=== PATIENT | male | born 1940 | race Caucasian/White ===

== ENCOUNTER 2019-07-25 12:50 | Outpatient (RCR) | payer SELFPAY | END 2019-08-17 23:59 | disposition home or self-care (01) | LOC: CR 12:50 | PROVIDERS: Family Provider Internal Medicine; Referring Provider Thoracic Surgery (Cardiothoracic Vascular Surgery); Visit Provider Thoracic Surgery (Cardiothoracic Vascular Surgery) | DX: Z76.89 Persons encountering health services in other specified circumstances (principal) ==

== ENCOUNTER 2019-12-25 14:42 | Outpatient (RCR) | payer SELFPAY | END 2020-01-15 23:59 | disposition home or self-care (01) | LOC: CR 14:42 | PROVIDERS: Family Provider Internal Medicine; Referring Provider Thoracic Surgery (Cardiothoracic Vascular Surgery); Visit Provider Thoracic Surgery (Cardiothoracic Vascular Surgery) | DX: Z95.1 Presence of aortocoronary bypass graft (principal) ==

== ENCOUNTER 2020-01-16 | Outpatient (RCR) | payer SELFPAY | END 2020-02-15 23:00 | disposition home or self-care (01) | LOC: CR | PROVIDERS: Family Provider Internal Medicine; Referring Provider Thoracic Surgery (Cardiothoracic Vascular Surgery); Visit Provider Thoracic Surgery (Cardiothoracic Vascular Surgery) | DX: Z95.1 Presence of aortocoronary bypass graft (principal) ==

== ENCOUNTER 2020-02-19 13:56 | Outpatient (RCR) | payer SELFPAY | END 2020-03-17 23:59 | disposition home or self-care (01) | LOC: CR 13:56 | PROVIDERS: Family Provider Internal Medicine; Referring Provider Thoracic Surgery (Cardiothoracic Vascular Surgery); Visit Provider Thoracic Surgery (Cardiothoracic Vascular Surgery) | DX: Z95.1 Presence of aortocoronary bypass graft (principal) ==

== ENCOUNTER 2020-11-25 09:18 | Outpatient (RCR) | payer SELFPAY | END 2020-12-15 23:59 | disposition home or self-care (01) | LOC: CR 09:18 | PROVIDERS: Family Provider Internal Medicine; PCP Internal Medicine; Referring Provider Internal Medicine; Visit Provider Internal Medicine | DX: Z95.1 Presence of aortocoronary bypass graft (principal) ==

== ENCOUNTER 2020-12-18 10:45 | Outpatient (RCR) | payer SELFPAY | END 2021-01-14 23:59 | disposition home or self-care (01) | LOC: CR 10:45 | PROVIDERS: Family Provider Internal Medicine; PCP Internal Medicine; Referring Provider Internal Medicine; Visit Provider Internal Medicine | DX: Z95.1 Presence of aortocoronary bypass graft (principal) ==

== ENCOUNTER 2021-01-15 11:06 | Outpatient (RCR) | payer SELFPAY | END 2021-02-14 23:59 | disposition home or self-care (01) | LOC: CR 11:06 | PROVIDERS: Family Provider Internal Medicine; PCP Internal Medicine; Referring Provider Internal Medicine; Visit Provider Internal Medicine | DX: Z95.1 Presence of aortocoronary bypass graft (principal) ==

== ENCOUNTER 2021-01-26 09:11 | Outpatient (CLI) | payer MEDICARE, OTHER, SELFPAY ==
--- NOTE | 2021-01-26 09:16 | FL_ITS ---
WS: [id number] Juan Francisco Henley 3 13 43 BARIUM SWALLOW TECHNICAL: Double contrast barium swallow with thin and thick liquids FLUOROSCOPY TIME: 2.6 minutes CLINICAL INFORMATION: Dysphagia COMPARISON: None. FINDINGS: Sternotomy. CABG. Swallowing: Prominent Chin tuck performed with swallowing. No penetration or daiana aspiration. Esophagus: Mild esophageal dysmotility with slightly delayed emptying. No strictures. Small esophagea l hiatal hernia. Gastroesophageal reflux: Mild reflux is visualized in the supine position. [place] barium swallow 31446 IMPRESSION: 1. No penetration or daiana aspiration. 2. Moderate esophageal dysmotility with slightly delayed emptying. No strictur es. 3. Small esophageal hiatal hernia with mild reflux visualized in the supine po sition.
== END 2021-01-26 09:12 | disposition home or self-care (01) ==
LOC: RADWPI 09:14
PROVIDERS: Family Provider Internal Medicine; PCP Internal Medicine; Visit Provider Specialist
DX: R13.10 Dysphagia, unspecified (principal); K44.9 Diaphragmatic hernia without obstruction or gangrene; K21.9 Gastro-esophageal reflux disease without esophagitis
CPT/HCPCS: 74220

== ENCOUNTER 2021-02-16 13:28 | Outpatient (RCR) | payer SELFPAY | END 2021-03-17 23:59 | disposition home or self-care (01) | LOC: CR 13:28 | PROVIDERS: Family Provider Internal Medicine; PCP Internal Medicine; Referring Provider Internal Medicine; Visit Provider Internal Medicine | DX: Z95.1 Presence of aortocoronary bypass graft (principal) ==

== ENCOUNTER 2021-02-20 09:38 | Outpatient (CLI) | payer MEDICARE, OTHER, SELFPAY ==
--- NOTE | 2021-02-20 09:49 | FL_ITS ---
WS: [id number] MODIFIED BARIUM SWALLOW HISTORY: Oropharyngeal dysphagia FLUOROSCOPY TIME: 0.9 minutes. Modified barium swallow was performed by the speech pathologist. Fluoroscopy was provided with the pa tient in a lateral projection. Multiple food consistencies were provided. Patient swallowed barium mixtures without difficulty. No aspiration or laryngeal penetration. No sign ificant residual. Barium tablet was swallowed normally. FL/FL barium swallow modifd [id number] IMPRESSION: Unremarkable modified swallowing examination. Please see speech therapist report also for recommendations.
== END 2021-02-20 09:39 | disposition home or self-care (01) ==
LOC: RAD 09:45
PROVIDERS: PCP Internal Medicine; Visit Provider Otolaryngology
DX: R13.12 Dysphagia, oropharyngeal phase (principal)
CPT/HCPCS: 74230; 92611

== ENCOUNTER 2021-03-02 10:39 | Outpatient (CLI) | payer MEDICARE, OTHER, SELFPAY ==
[2021-03-02 11:30] LABS: Basophils # 0.1 10^3/uL (0.0-0.1); Basophils % 0.7 %; Eosinophils # 0.4 10^3/uL (0.0-0.8); Eosinophils % 5.1 %; Hematocrit 46.1 % (42.0-52.0); Hemoglobin 14.4 g/dL (11.7-16.6); Lymphocytes # 1.6 10^3/uL (0.8-4.8); Lymphocytes % 23.4 %; Mean Corpuscular HGB Conc 31.2 g/dL (30.0-36.0); Mean Corpuscular Hemoglobin 29.3 pg (28.0-34.0); Mean Corpuscular Volume 93.9 fl (80-94); Mean Platelet Volume 10.2 fL (7.4-10.4); Monocytes # 0.6 10^3/uL (0.2-0.9); Monocytes % 8.3 %; Neutrophils # 4.25 10^3/uL (1.8-7.7); Neutrophils % 62.1 %; Nucleated Red Blood Cells % 0 %; Platelet Count 173 10^3/cmm (130-400); Red Blood Count 4.91 10^6/uL (4.1-5.3); White Blood Count 6.9 10^3/uL (4.0-10.0)
[2021-03-02 11:51] LABS: Anion Gap 15.2 (5-19); Blood Urea Nitrogen 26 mg/dL (8-23); Carbon Dioxide 23 mmol/L (22-29); Chloride 105 mmol/L (98-107); Glucose 84 mg/dL (65-115); Osmolality Calculated 292 mOsm/kg (285-295); Potassium 4.2 mmol/L (3.5-5.1); Sodium 139 mmol/L (136-145)
--- NOTE | 2021-03-02 13:20 | ECG_ITS ---
[facility] Test Date: 2021-03-02 Pat Name: Freddy Henley Department: Room: Gender: Male Verification Manager: : 1940 Requested By: Stuart Parish Order Number: [id number] Terrell MD: Sinan Tony M.D. Measurements Intervals [place] Rate: 60 P: 16 SC: 172 QRS: 1 QRSD: 161 T: 56 QT: 439 QTc: 441 Interpretive Statements SINUS RHYTHM INDETERMINATE AXIS RIGHT BUNDLE BRANCH BLOCK [120+ ms QRS DURATION, UPRIGHT V1, 40+ ms S IN I/aVL/V4/V5/V6] PROBABLE SEPTAL MYOCARDIAL INFARCTION , OF INDETERMINATE AGE [35 ms Q WAVE IN V1/V2] Compared to ECG 12/21/2016 05:51:49 Indeterminate axis now present Myocardial infarct finding now present Sinus bradycardia no longer present Ventricular premature complex(es) no longer present Electronically Signed On 03-03-2021 0:08:26 CDT by Sinan Tony M.D. [id number]
== END 2021-03-02 10:40 | disposition home or self-care (01) ==
PROVIDERS: PCP Internal Medicine; Visit Provider Specialist
DX: J37.0 Chronic laryngitis (principal); R93.0 Abnormal findings on diagnostic imaging of skull and head, not elsewhere classified
CPT/HCPCS: 36415; 80048; 85025; 93005

== ENCOUNTER 2021-03-18 14:22 | Outpatient (RCR) | payer SELFPAY | END 2021-04-16 23:59 | disposition home or self-care (01) | LOC: CR 14:22 | PROVIDERS: Family Provider Internal Medicine; PCP Internal Medicine; Referring Provider Internal Medicine; Visit Provider Internal Medicine | DX: Z95.1 Presence of aortocoronary bypass graft (principal) ==

== ENCOUNTER 2021-04-17 09:58 | Outpatient (RCR) | payer SELFPAY | END 2021-05-17 23:59 | disposition home or self-care (01) | LOC: CR 09:58 | PROVIDERS: Family Provider Internal Medicine; PCP Internal Medicine; Referring Provider Internal Medicine; Visit Provider Internal Medicine | DX: Z95.1 Presence of aortocoronary bypass graft (principal) ==

== ENCOUNTER → 2021-11-19 13:10 | Outpatient (BNVA) | payer MEDICARE, OTHER, SELFPAY | PROVIDERS: Family Provider Internal Medicine; PCP Internal Medicine; Visit Provider Internal Medicine Cardiovascular Disease | DX: I47.2 Ventricular tachycardia (principal) | CPT/HCPCS: 93246 ==

== ENCOUNTER 2021-12-16 08:54 | Outpatient (RCR) | payer SELFPAY | END 2022-01-14 23:59 | disposition home or self-care (01) | LOC: CR 08:54 | PROVIDERS: Family Provider Internal Medicine; PCP Internal Medicine; Referring Provider Internal Medicine Cardiovascular Disease; Visit Provider Internal Medicine Cardiovascular Disease | DX: Z95.1 Presence of aortocoronary bypass graft (principal) ==

== ENCOUNTER → 2022-01-13 13:56 | Outpatient (BNVA) | payer MEDICARE, OTHER, SELFPAY | PROVIDERS: Family Provider Internal Medicine; PCP Internal Medicine; Visit Provider Internal Medicine Cardiovascular Disease | DX: I25.10 Atherosclerotic heart disease of native coronary artery without angina pectoris (principal); I49.9 Cardiac arrhythmia, unspecified; R23.8 Other skin changes; E78.2 Mixed hyperlipidemia; I65.23 Occlusion and stenosis of bilateral carotid arteries; I10 Essential (primary) hypertension; Z87.891 Personal history of nicotine dependence | CPT/HCPCS: 99214 ==

== ENCOUNTER 2022-01-14 07:44 | Outpatient (CLI) | payer MEDICARE, OTHER, SELFPAY ==
[2022-01-14 08:35] LABS: Basophils # 0.1 10^3/uL (0.0-0.1); Basophils % 0.7 %; Eosinophils # 0.4 10^3/uL (0.0-0.8); Eosinophils % 4.6 %; Hematocrit 46.1 % (42.0-52.0); Hemoglobin 15.2 g/dL (11.7-16.6); Lymphocytes # 1.7 10^3/uL (0.8-4.8); Lymphocytes % 22.7 %; Mean Corpuscular Hemoglobin 30.6 pg (28.0-34.0); Mean Corpuscular Volume 92.9 fl (80-94); Mean Platelet Volume 10.5 fL (7.4-10.4); Monocytes # 0.6 10^3/uL (0.2-0.9); Monocytes % 7.9 %; Neutrophils # 4.86 10^3/uL (1.8-7.7); Neutrophils % 63.6 %; Nucleated Red Blood Cells % 0 %; Platelet Count 184 10^3/cmm (130-400); Red Blood Count 4.96 10^6/uL (4.1-5.3); Red Cell Distribution Width 13.5 % (12.1-15.1); White Blood Count 7.6 10^3/uL (4.0-10.0)
[2022-01-14 08:49] LABS: INR 0.99 (0.8-1.2); Partial Thromboplastin Time 27.6 SECONDS (23.9-36.7)
[2022-01-14 08:53] LABS: Chol HDL Ratio 2.64 mg/dL (1.0-5.00); Cholesterol 145 mg/dL (0-200); HDL Cholesterol 55 mg/dL (60-100); LDL Cholesterol Calculated 76 mg/dL (50-129); LDL HDL Ratio 1.38 RATIO (0.00-3.22); Magnesium 2.3 mg/dL (1.7-2.3); Triglycerides 72 mg/dL (0-150)
[2022-01-14 09:20] LABS: Fibrinogen 310 mg/dL (174-498)
[2022-01-14 09:43] LABS: Platelet Count 184 10^3/cmm (130-400)
== END 2022-01-14 07:45 | disposition home or self-care (01) ==
LOC: LAB 07:49
PROVIDERS: Family Provider Internal Medicine; PCP Internal Medicine; Visit Provider Internal Medicine Cardiovascular Disease
DX: I65.23 Occlusion and stenosis of bilateral carotid arteries (principal); R23.8 Other skin changes; R25.2 Cramp and spasm; E78.5 Hyperlipidemia, unspecified; Z79.01 Long term (current) use of anticoagulants
CPT/HCPCS: 80061; 83735; 85025; 85049; 85384; 85610; 85730

== ENCOUNTER 2022-01-15 09:34 | Outpatient (RCR) | payer SELFPAY | END 2022-02-14 23:59 | disposition home or self-care (01) | LOC: CR 09:34 | PROVIDERS: Family Provider Internal Medicine; PCP Internal Medicine; Referring Provider Internal Medicine Cardiovascular Disease; Visit Provider Internal Medicine Cardiovascular Disease | DX: Z95.1 Presence of aortocoronary bypass graft (principal) ==

== ENCOUNTER 2022-02-15 12:24 | Outpatient (RCR) | payer SELFPAY | END 2022-03-17 23:59 | disposition home or self-care (01) | LOC: CR 12:24 | PROVIDERS: Family Provider Internal Medicine; PCP Internal Medicine; Referring Provider Internal Medicine Cardiovascular Disease; Visit Provider Internal Medicine Cardiovascular Disease | DX: Z95.1 Presence of aortocoronary bypass graft (principal) ==

== ENCOUNTER 2022-03-18 15:21 | Outpatient (RCR) | payer SELFPAY | END 2022-04-16 23:59 | disposition home or self-care (01) | LOC: CR 15:21 | PROVIDERS: Family Provider Internal Medicine; PCP Internal Medicine; Referring Provider Internal Medicine Cardiovascular Disease; Visit Provider Internal Medicine Cardiovascular Disease | DX: Z95.1 Presence of aortocoronary bypass graft (principal) ==

== ENCOUNTER 2022-04-19 10:09 | Outpatient (RCR) | payer SELFPAY | END 2022-05-17 23:59 | disposition home or self-care (01) | LOC: CR 10:09 | PROVIDERS: Family Provider Internal Medicine; PCP Internal Medicine; Referring Provider Internal Medicine Cardiovascular Disease; Visit Provider Internal Medicine Cardiovascular Disease | DX: Z95.1 Presence of aortocoronary bypass graft (principal) ==

== ENCOUNTER 2022-05-18 10:40 | Outpatient (RCR) | payer SELFPAY | END 2022-06-16 23:59 | disposition home or self-care (01) | LOC: CR 10:40 | PROVIDERS: Family Provider Internal Medicine; PCP Internal Medicine; Referring Provider Internal Medicine Cardiovascular Disease; Visit Provider Internal Medicine Cardiovascular Disease | DX: Z95.1 Presence of aortocoronary bypass graft (principal) ==

== ENCOUNTER 2022-06-17 14:43 | Outpatient (RCR) | payer SELFPAY | END 2022-07-17 23:59 | disposition home or self-care (01) | LOC: CR 14:43 | PROVIDERS: Family Provider Internal Medicine; PCP Internal Medicine; Referring Provider Internal Medicine Cardiovascular Disease; Visit Provider Internal Medicine Cardiovascular Disease | DX: I25.10 Atherosclerotic heart disease of native coronary artery without angina pectoris (principal) ==

== ENCOUNTER → 2022-07-14 11:27 | Outpatient (BNVA) | payer MEDICARE, OTHER, SELFPAY | PROVIDERS: Family Provider Internal Medicine; PCP Internal Medicine; Visit Provider Internal Medicine Cardiovascular Disease | DX: I65.23 Occlusion and stenosis of bilateral carotid arteries (principal); I25.10 Atherosclerotic heart disease of native coronary artery without angina pectoris; I49.9 Cardiac arrhythmia, unspecified; E78.2 Mixed hyperlipidemia; I10 Essential (primary) hypertension; Z98.890 Other specified postprocedural states; Z87.891 Personal history of nicotine dependence | CPT/HCPCS: 99214 ==

== ENCOUNTER 2022-07-21 12:42 | Outpatient (RCR) | payer SELFPAY | END 2022-08-17 23:59 | disposition home or self-care (01) | LOC: CR 12:42 | PROVIDERS: Family Provider Internal Medicine; PCP Internal Medicine; Referring Provider Internal Medicine Cardiovascular Disease; Visit Provider Internal Medicine Cardiovascular Disease | DX: I25.10 Atherosclerotic heart disease of native coronary artery without angina pectoris (principal) ==

== ENCOUNTER 2022-08-18 14:43 | Outpatient (RCR) | payer SELFPAY | END 2022-09-14 23:59 | disposition home or self-care (01) | LOC: CR 14:43 | PROVIDERS: Family Provider Internal Medicine; PCP Internal Medicine; Referring Provider Internal Medicine Cardiovascular Disease; Visit Provider Internal Medicine Cardiovascular Disease | DX: I25.10 Atherosclerotic heart disease of native coronary artery without angina pectoris (principal) ==

== ENCOUNTER 2022-08-24 08:01 | Outpatient (CLI) | payer MEDICARE, OTHER, SELFPAY ==
--- NOTE | 2022-08-24 08:00 | USCV_ITS ---
Freddy Henley Age: 81 Gender: M : 1940 Exam Date: 08/24/2022 08:34 Ordering Phys: Sinan Tony MD ([email or web address]) Technologist: YTSON Exam Location: [facility] [place] Indication: Occlusion Risk Factors: Previous Vascular Surgery: Right Brachial BP: / Left Brachial BP: / Right Left Velocity (cm/s) Spectral Plaque Velocity (cm/s) Spectral Plaque Syst/Diast Broadening Syst/Diast Broadening 55.90/ 10.90 Prox CCA 70.00 / 7.50 55.90/ 14.00 Mid CCA 70.00 / 9.60 55.20/ 13.20 Distal CCA 68.40 / 10.70 53.90/ 14.50 Prox ICA 25.60 / 3.00 61.10/ 13.80 Mid ICA / 50.00/ 19.10 Distal ICA / 104.10 ECA 120.20 1.09 ICA/CCA 0.37 Vertebral 102.5/ 25.60 cm/s 37.50/ 10.50 cm/s 0 Subclavian 118.0 163.1 0 0 CONCLUSIONS Right ICA stenosis <50%. Moderate atheromatous plaque right carotid bulb/ICA. 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 Left CCA is patent. This could be further evaluated with CTA Normal antegrade Doppler flow noted in the right vertebral artery. Normal antegrade Doppler flow noted in the left vertebral artery. Juan Ibanez MD (Electronically Signed) Final Date: 24 August 2022 11:17 S
== END 2022-08-24 08:02 | disposition home or self-care (01) ==
PROVIDERS: PCP Internal Medicine; Visit Provider Internal Medicine Cardiovascular Disease
DX: I65.23 Occlusion and stenosis of bilateral carotid arteries (principal); I77.9 Disorder of arteries and arterioles, unspecified
CPT/HCPCS: 93880

== ENCOUNTER 2022-09-15 14:52 | Outpatient (RCR) | payer SELFPAY | END 2022-10-15 23:59 | disposition home or self-care (01) | LOC: CR 14:52 | PROVIDERS: Family Provider Internal Medicine; PCP Internal Medicine; Referring Provider Internal Medicine Cardiovascular Disease; Visit Provider Internal Medicine Cardiovascular Disease | DX: I25.10 Atherosclerotic heart disease of native coronary artery without angina pectoris (principal) ==

== ENCOUNTER 2022-11-15 15:19 | Outpatient (RCR) | payer SELFPAY | END 2022-12-15 23:59 | disposition home or self-care (01) | LOC: CR 15:19 | PROVIDERS: Family Provider Internal Medicine; PCP Internal Medicine; Referring Provider Internal Medicine Cardiovascular Disease; Visit Provider Internal Medicine Cardiovascular Disease | DX: I25.10 Atherosclerotic heart disease of native coronary artery without angina pectoris (principal) ==

== ENCOUNTER 2022-12-17 12:55 | Outpatient (RCR) | payer SELFPAY | END 2023-01-14 23:59 | disposition home or self-care (01) | LOC: CR 12:55 | PROVIDERS: Family Provider Internal Medicine; PCP Internal Medicine; Referring Provider Internal Medicine Cardiovascular Disease; Visit Provider Internal Medicine Cardiovascular Disease | DX: I25.10 Atherosclerotic heart disease of native coronary artery without angina pectoris (principal) ==

== ENCOUNTER 2023-01-20 10:34 | Outpatient (RCR) | payer SELFPAY | END 2023-02-14 23:59 | disposition home or self-care (01) | LOC: CR 10:34 | PROVIDERS: Family Provider Internal Medicine; PCP Internal Medicine; Referring Provider Internal Medicine Cardiovascular Disease; Visit Provider Internal Medicine Cardiovascular Disease | DX: I25.10 Atherosclerotic heart disease of native coronary artery without angina pectoris (principal) ==

== ENCOUNTER 2023-02-15 14:11 | Outpatient (RCR) | payer SELFPAY | END 2023-03-17 23:59 | disposition home or self-care (01) | LOC: CR 14:11 | PROVIDERS: Family Provider Internal Medicine; PCP Internal Medicine; Referring Provider Internal Medicine Cardiovascular Disease; Visit Provider Internal Medicine Cardiovascular Disease | DX: I25.10 Atherosclerotic heart disease of native coronary artery without angina pectoris (principal) ==

== ENCOUNTER → 2023-02-28 11:53 | Outpatient (BNVA) | payer MEDICARE, OTHER, SELFPAY | PROVIDERS: Family Provider Internal Medicine; PCP Internal Medicine; Visit Provider Internal Medicine Cardiovascular Disease | DX: R07.9 Chest pain, unspecified (principal); I45.10 Unspecified right bundle-branch block; R00.1 Bradycardia, unspecified; I25.10 Atherosclerotic heart disease of native coronary artery without angina pectoris; I65.23 Occlusion and stenosis of bilateral carotid arteries; E78.2 Mixed hyperlipidemia; I10 Essential (primary) hypertension; Z87.891 Personal history of nicotine dependence | CPT/HCPCS: 93005; 99214 ==

== ENCOUNTER 2023-03-18 11:11 | Outpatient (RCR) | payer SELFPAY | END 2023-04-16 23:59 | disposition home or self-care (01) | LOC: CR 11:11 | PROVIDERS: Family Provider Internal Medicine; PCP Internal Medicine; Referring Provider Internal Medicine Cardiovascular Disease; Visit Provider Internal Medicine Cardiovascular Disease | DX: I25.10 Atherosclerotic heart disease of native coronary artery without angina pectoris (principal) ==

== ENCOUNTER 2023-04-19 09:35 | Outpatient (RCR) | payer SELFPAY | END 2023-05-17 23:59 | disposition home or self-care (01) | LOC: CR 09:35 | PROVIDERS: Family Provider Internal Medicine; PCP Internal Medicine; Referring Provider Internal Medicine Cardiovascular Disease; Visit Provider Internal Medicine Cardiovascular Disease | DX: I25.10 Atherosclerotic heart disease of native coronary artery without angina pectoris (principal) ==

== ENCOUNTER 2023-05-19 15:14 | Outpatient (RCR) | payer SELFPAY | END 2023-06-16 23:59 | disposition home or self-care (01) | LOC: CR 15:14 | PROVIDERS: Family Provider Internal Medicine; PCP Internal Medicine; Referring Provider Internal Medicine Cardiovascular Disease; Visit Provider Internal Medicine Cardiovascular Disease | DX: I25.10 Atherosclerotic heart disease of native coronary artery without angina pectoris (principal) ==

== ENCOUNTER 2023-06-17 09:20 | Outpatient (RCR) | payer SELFPAY | END 2023-07-17 23:59 | disposition home or self-care (01) | LOC: CR 09:20 | PROVIDERS: Family Provider Internal Medicine; PCP Internal Medicine; Referring Provider Internal Medicine Cardiovascular Disease; Visit Provider Internal Medicine Cardiovascular Disease | DX: I25.10 Atherosclerotic heart disease of native coronary artery without angina pectoris (principal) ==

== ENCOUNTER 2023-07-19 11:02 | Outpatient (RCR) | payer SELFPAY | END 2023-08-17 23:59 | disposition home or self-care (01) | LOC: CR 11:02 | PROVIDERS: Family Provider Internal Medicine; PCP Internal Medicine; Referring Provider Internal Medicine Cardiovascular Disease; Visit Provider Internal Medicine Cardiovascular Disease | DX: I25.10 Atherosclerotic heart disease of native coronary artery without angina pectoris (principal) ==

== ENCOUNTER 2024-01-16 15:33 | Outpatient (RCR) | payer SELFPAY | END 2024-02-15 23:59 | disposition home or self-care (01) | LOC: CR 15:33 | PROVIDERS: Family Provider Internal Medicine; PCP Internal Medicine; Referring Provider Internal Medicine Cardiovascular Disease; Visit Provider Internal Medicine Cardiovascular Disease | DX: I25.10 Atherosclerotic heart disease of native coronary artery without angina pectoris (principal) ==

== ENCOUNTER 2024-02-27 14:00 | Outpatient (RCR) | payer SELFPAY | END 2024-03-17 23:59 | disposition home or self-care (01) | LOC: CR 14:00 | PROVIDERS: Family Provider Internal Medicine; PCP Internal Medicine; Referring Provider Internal Medicine Cardiovascular Disease; Visit Provider Internal Medicine Cardiovascular Disease | DX: I25.10 Atherosclerotic heart disease of native coronary artery without angina pectoris (principal) ==

== ENCOUNTER 2024-03-21 13:01 | Outpatient (RCR) | payer SELFPAY | END 2024-04-16 23:59 | disposition home or self-care (01) | LOC: CR 13:01 | PROVIDERS: Family Provider Internal Medicine; PCP Internal Medicine; Referring Provider Internal Medicine Cardiovascular Disease; Visit Provider Internal Medicine Cardiovascular Disease | DX: I25.10 Atherosclerotic heart disease of native coronary artery without angina pectoris (principal) ==

== ENCOUNTER → 2024-05-07 13:50 | Outpatient (BNVA) | payer MEDICARE, OTHER, SELFPAY | PROVIDERS: Family Provider Internal Medicine; PCP Internal Medicine; Visit Provider Internal Medicine Cardiovascular Disease | DX: I25.10 Atherosclerotic heart disease of native coronary artery without angina pectoris (principal); E78.2 Mixed hyperlipidemia; I10 Essential (primary) hypertension; I65.23 Occlusion and stenosis of bilateral carotid arteries; I49.8 Other specified cardiac arrhythmias; Z95.1 Presence of aortocoronary bypass graft; I25.2 Old myocardial infarction | CPT/HCPCS: 99214 ==

== ENCOUNTER 2024-10-16 14:31 | Outpatient (RCR) | payer SELFPAY | END 2024-11-14 23:59 | disposition home or self-care (01) | LOC: CR 14:31 | PROVIDERS: Family Provider Internal Medicine; PCP Internal Medicine; Referring Provider Internal Medicine Cardiovascular Disease; Visit Provider Internal Medicine Cardiovascular Disease | DX: I25.10 Atherosclerotic heart disease of native coronary artery without angina pectoris (principal) ==

== ENCOUNTER 2024-11-15 12:33 | Outpatient (RCR) | payer SELFPAY | END 2024-12-15 23:59 | disposition home or self-care (01) | LOC: CR 12:33 | PROVIDERS: Family Provider Internal Medicine; PCP Internal Medicine; Referring Provider Internal Medicine Cardiovascular Disease; Visit Provider Internal Medicine Cardiovascular Disease | DX: I25.10 Atherosclerotic heart disease of native coronary artery without angina pectoris (principal) ==

== ENCOUNTER 2024-12-19 09:35 | Outpatient (RCR) | payer SELFPAY | END 2025-01-14 23:59 | disposition home or self-care (01) | LOC: CR 09:35 | PROVIDERS: Family Provider Internal Medicine; PCP Internal Medicine; Referring Provider Internal Medicine Cardiovascular Disease; Visit Provider Internal Medicine Cardiovascular Disease | DX: I25.10 Atherosclerotic heart disease of native coronary artery without angina pectoris (principal) ==

== ENCOUNTER 2025-01-15 11:21 | Outpatient (RCR) | payer SELFPAY | END 2025-02-14 23:59 | disposition home or self-care (01) | LOC: CR 11:21 | PROVIDERS: Family Provider Internal Medicine; PCP Internal Medicine; Referring Provider Internal Medicine Cardiovascular Disease; Visit Provider Internal Medicine Cardiovascular Disease | DX: I25.10 Atherosclerotic heart disease of native coronary artery without angina pectoris (principal) ==

== ENCOUNTER 2025-02-15 14:03 | Outpatient (RCR) | payer SELFPAY | END 2025-03-17 23:59 | disposition home or self-care (01) | LOC: CR 14:03 | PROVIDERS: Family Provider Internal Medicine; PCP Internal Medicine; Referring Provider Internal Medicine Cardiovascular Disease; Visit Provider Internal Medicine Cardiovascular Disease | DX: I25.10 Atherosclerotic heart disease of native coronary artery without angina pectoris (principal) ==

== ENCOUNTER 2025-03-19 13:55 | Outpatient (RCR) | payer SELFPAY | END 2025-04-16 23:59 | disposition home or self-care (01) | LOC: CR 13:55 | PROVIDERS: Family Provider Internal Medicine; PCP Internal Medicine; Referring Provider Internal Medicine Cardiovascular Disease; Visit Provider Internal Medicine Cardiovascular Disease | DX: I25.10 Atherosclerotic heart disease of native coronary artery without angina pectoris (principal) ==

== ENCOUNTER 2025-04-17 09:24 | Outpatient (RCR) | payer SELFPAY | END 2025-05-17 23:59 | disposition home or self-care (01) | LOC: CR 09:24 | PROVIDERS: Family Provider Internal Medicine; PCP Internal Medicine; Referring Provider Internal Medicine Cardiovascular Disease; Visit Provider Internal Medicine Cardiovascular Disease | DX: I25.10 Atherosclerotic heart disease of native coronary artery without angina pectoris (principal) ==

== ENCOUNTER 2025-05-18 12:49 | Outpatient (RCR) | payer SELFPAY | END 2025-06-16 23:59 | disposition home or self-care (01) | LOC: CR 12:49 | PROVIDERS: Family Provider Internal Medicine; PCP Internal Medicine; Referring Provider Internal Medicine Cardiovascular Disease; Visit Provider Internal Medicine Cardiovascular Disease | DX: I25.10 Atherosclerotic heart disease of native coronary artery without angina pectoris (principal) ==

== ENCOUNTER 2025-06-17 09:15 | Outpatient (RCR) | payer SELFPAY | END 2025-07-17 23:59 | disposition home or self-care (01) | LOC: CR 09:15 | PROVIDERS: Family Provider Internal Medicine; PCP Internal Medicine; Referring Provider Internal Medicine Cardiovascular Disease; Visit Provider Internal Medicine Cardiovascular Disease | DX: I25.10 Atherosclerotic heart disease of native coronary artery without angina pectoris (principal) ==